=== PATIENT | female | born 1980 | race African-American/Black ===

== ENCOUNTER 2021-02-02 05:13 | Emergency (ER) | payer OTHER ==
[~2021-02-02] VITALS: Ht 162.6 cm; Wt 80.0 kg
[2021-02-02 07:16] LABS: BASOPHILS % 0.6 % (0.0-2.0); EOSINOPHILS % 0.3 % (0.0-5.0); HEMATOCRIT. 38.5 % (36.0-48.0); HEMOGLOBIN. 13.3 g/dL (12.0-16.0); LYMPHOCYTES % 18.5 % (20.0-50.0); MEAN CORPUSCULAR VOLUME 83.8 fL (81.0-99.0); MEAN PLATELET VOLUME 7.5 fl (7.4-10.4); MONOCYTES % 6.2 % (2.0-8.0); NEUTROPHILS % 74.4 % (40.0-76.0); PLATELET 316 x1000/uL (130-400); RED CELL DISTRIBUTION WIDTH 14.8 % (11.6-14.6)
[2021-02-02 07:22] LABS: CHLORIDE 112 mEq/L (98-107)
[2021-02-02 07:27] LABS: ETHANOL BLOOD 44 mg/dL; HCG SCREEN NEGATIVE
[2021-02-02 07:30] LABS: LDL CHOLESTEROL 154 mg/dL (5-100)
[2021-02-02 07:57] LABS: CLARITY URINE CLEAR (CLEAR); COLOR URINE YELLOW (YELLOW); KETONES URINE NEGATIVE (NEGATIVE); LEUKOCYTE ESTERASE URINE NEGATIVE (NEGATIVE); NITRITE URINE NEGATIVE (NEGATIVE); OCCULT BLOOD URINE NEGATIVE (NEGATIVE); PROTEIN URINE NEGATIVE (NEGATIVE); SPECIFIC GRAVITY URINE 1.024 (1.005-1.030); UROBILINOGEN URINE 0.2 E.U./dL (0.2-1.0)
[2021-02-02 07:59] LABS: PROTHROMBIN TIME 10.7 sec (9.6-11.0)
[2021-02-02] MEDS ORDERED: ASPIRIN 325MG EC TABLET PO ONE (08:00)
[2021-02-02] MEDS ORDERED: LEVETIRACETAM 500MG PREMIX 100 ML IV ONE (08:00)
[2021-02-02 08:11] LABS: *BARBITURATES SCREEN URINE NEGATIVE (NEGATIVE); *COCAINE SCREEN URINE NEGATIVE (NEGATIVE); CANNABINOID URINE SCREEN NEGATIVE (NEGATIVE); METHADONE URINE SCREEN NEGATIVE (NEGATIVE); OPIATES URINE SCREEN NEGATIVE (NEGATIVE); PHENCYCLIDINE URINE SCREEN NEGATIVE (NEGATIVE)
[2021-02-02 08:13] LABS: *AMPHETAMINES SCREEN URINE NEGATIVE (NEGATIVE)
[2021-02-02 08:18] LABS: *BENZODIAZEPINES SCREEN URINE NEGATIVE (NEGATIVE)
[2021-02-02] MEDS ORDERED: IOHEXOL-350 100 ML BOTTLE ONE (09:07)
[2021-02-02] MEDS ORDERED: LORAZEPAM 2MG/ML CPJ IV PRN (10:15)
[2021-02-02 12:08] VITALS: BP 120/74
== END 2021-02-02 12:11 | disposition left against medical advice (07) ==
LOC: ER 05:13 → CANBEDREQ 18:32
DX: R56.9 Unspecified convulsions (principal); R53.1 Weakness; I95.9 Hypotension, unspecified; G43.909 Migraine, unspecified, not intractable, without status migrainosus; Z98.51 Tubal ligation status; Z98.890 Other specified postprocedural states; Z20.822 Contact with and (suspected) exposure to COVID-19
CPT/HCPCS: 36415; 70450; 70496; 70498; 71045; 80053; 80305; 80320; 81003; 81025; 82962; 83721; 83735; 84484; 84703; 85025; 85610; 85730; 87426; 93005; 96365; 96375; 99291; J1953; J2060; Q9967; G0480